=== PATIENT | male | born 1940 | race Caucasian/White ===

== ENCOUNTER → 2017-06-09 | Outpatient (CLI) | payer OTHER, MEDICARE | LOC: BHLMT 11:00 | PROVIDERS: ATTEND Internal Medicine Cardiovascular Disease | DX: I71.9 Aortic aneurysm of unspecified site, without rupture (principal); I10 Essential (primary) hypertension; I25.10 Atherosclerotic heart disease of native coronary artery without angina pectoris; Z95.1 Presence of aortocoronary bypass graft; E78.2 Mixed hyperlipidemia | CPT/HCPCS: 93005-PO ==

== ENCOUNTER → 2018-01-15 | Outpatient (CLI) | payer OTHER, MEDICARE ==
[~2018-01-15] MED LIST: IOPAMIDOL (ISOVUE 370) 100 ML BTL IV ONE
== END ==
LOC: FIMAGING 10:18
PROVIDERS: ATTEND Radiology Diagnostic Radiology
DX: I71.4 Abdominal aortic aneurysm, without rupture (principal)
CPT/HCPCS: 74174; Q9967

== ENCOUNTER → 2018-06-08 | Outpatient (CLI) | payer OTHER, MEDICARE | LOC: BHFA 09:30 | PROVIDERS: ATTEND Internal Medicine Interventional Cardiology | DX: R07.9 Chest pain, unspecified (principal); I25.10 Atherosclerotic heart disease of native coronary artery without angina pectoris | CPT/HCPCS: 78452; 93017; A9500; J2785 ==

== ENCOUNTER → 2018-07-08 | Outpatient (CLI) | payer OTHER, MEDICARE | LOC: BHLMT 15:30 | PROVIDERS: ATTEND Internal Medicine Cardiovascular Disease | DX: I25.10 Atherosclerotic heart disease of native coronary artery without angina pectoris (principal) | CPT/HCPCS: 93306-PO ==

== ENCOUNTER → 2019-01-25 | Outpatient (CLI) | payer OTHER, MEDICARE | LOC: FIMAGING 10:14 | PROVIDERS: ATTEND Radiology Diagnostic Radiology | DX: I71.4 Abdominal aortic aneurysm, without rupture (principal) | CPT/HCPCS: 74174; Q9967; 82565-PO ==